=== PATIENT | male | born 1955 | race Caucasian/White ===

== ENCOUNTER 2016-08-28 07:42 | Day surgery (SDC) | payer BC ==
[~2016-08-28] VITALS: Ht 182.9 cm; Wt 91.4 kg
[2016-08-28] MEDS ORDERED: TOPROL XL 25MG25 MG PO (08:16)
[2016-08-28] MEDS ORDERED: ASPIRIN E.C. 8181 MG PO (08:16)
[2016-08-28] MEDS ORDERED: TRICOR145 MG PO (08:17)
[2016-08-28 08:27] VITALS: BP 120/73; PULSE 49; TEMP 97.7
[2016-08-28 09:35] VITALS: BP 101/62; PULSE 62
[2016-08-28 09:50] VITALS: BP 101/62; PULSE 51; TEMP 97.8
[2016-08-28 10:05] VITALS: BP 100/56; PULSE 50; TEMP 97
[2016-08-28 10:20] VITALS: BP 99/59; PULSE 48
[2016-08-28 10:50] VITALS: BP 100/55; PULSE 48
== END 2016-08-28 11:05 | disposition home or self-care (01) ==
LOC: SDCO 07:42
DX: Z86.010 Personal history of colon polyps (principal)
CPT/HCPCS: OP; J2250; J2405; J3010; J7030